=== PATIENT | male | born 1960 | race Caucasian/White ===

== ENCOUNTER 2016-07-30 11:42 | Emergency (ER) | payer BC ==
[~2016-07-30] VITALS: Ht 172.7 cm; Wt 80.2 kg
[~2016-07-30 11:42] MED LIST: IBUP-1724 PO
[2016-07-30 11:47] VITALS: Ht 172.7 cm; Wt 80.2 kg
--- OUTSIDE RECORDS SUMMARY | 2016-07-30 11:48 | XMS REPORT | Continuity of Care Document ---
Author Author [facility] Organization [facility] Address Unknown Phone Unavailable Allergies Active Description Code Type Severity Reaction Onset Reported/Identified Relationship to Patient Clinical Status Yes penicillin NKMA N/A Urticaria (hives) Hives Yes penicillin NKMA N/A Hives Urticaria (hives) Yes Penicillins Drug Allergy Urticaria (hives) 06/27/2012 Yes No Known Food Allergies Food Allergy 07/23/2012 Yes penicillin NKMA N/A Hives Urticaria (hives) 08/21/2013 Medications Medication Packaging Start Date Stop Date Route Dosage Sig albuterol(albuterol) 01/22/2014 10/07/2014 See Instructions , Albuterol HFA; 1 to 2 puffs p.o. every 4 hours p.r.n. amitriptyline(amitriptyline 50 mg oral tablet) 1 tabs 01/22/2014 01/23/2014 Oral 50 mg 1 tabs, Oral, Bedtime (once a day) acamprosate(Campral 333 mg oral delayed release tablet) 2 tabs 01/23/2014 02/09/2014 Oral 666 mg 2 tabs, Oral, TID, 84 tabs zolpidem(Ambien 10 mg oral tablet) 01/23/2014 01/28/2014 Oral 1/2-1 tab, Oral, Bedtime (once a day), Carol Foley, 5 tabs, PRN: as needed for sleep fluconazole(Diflucan 200 mg oral tablet) 1 tabs 06/19/201412/2014 Oral 200 mg 1 tabs, Oral, Daily, 10 tabs predniSONE(predniSONE 20 mg oral tablet) 1 tabs 06/19/201412/2014 Oral 20 mg 1 tabs, Oral, Daily, 10 tabs loratadine(Claritin 10 mg oral tablet) 1 tabs 06/19/20142014 Oral 10 mg 1 tabs, Oral, Daily, 90 tabs ciprofloxacin(Cipro 500 mg oral tablet) 1 tabs 10/16/201410/26 Oral 500 mg 500 mg=1 tabs, Oral, q12hr, for 10 days, 20 tabs, 0 Refill(s) doxycycline(doxycycline hyclate 100 mg oral capsule) 1 caps 10/16/2014 10/26/2014 Oral 100 mg 100 mg=1 caps, Oral, BID, for 10 days, 20 caps, 0 Refill(s) acyclovir(acyclovir 400 mg oral tablet) 1 tabs 10/16/201410/23 Oral 400 mg 400 mg=1 tabs, Oral, 5x/Day, for 7 days, 35 tabs, 0 Refill(s) doxycycline(doxycycline hyclate 100 mg oral capsule) 1 caps 10/29/2014 11/08/2014 Oral 100 mg 100 mg=1 caps, Oral, BID, for 10 days, 20 caps, 0 Refill(s) triamcinolone topical(triamcinolone 0.1% topical cream) 1 shalom 10/29/2014 07/05/2015 Topical 1 shalom, Topical, BID, 60 g, 0 Refill(s) hepatitis A-hepatitis B vaccine(Twinrix Preservative-Free 720 units-20 mcg/mL intramuscular suspension) 1 mL 01/25/2015 01/29/2015 IntraMuscular 1 mL, IntraMuscular, Once pneumococcal 23-polyvalent vaccine(Pneumovax 23 injectable solution) 0.5 mL 201401/29/2015 IntraMuscular 0.5 mL, IntraMuscular, Once hepatitis A-hepatitis B vaccine(Twinrix Preservative-Free 720 units-20 mcg/mL intramuscular suspension) 1 mL 01/29/2015 01/29/2015 IntraMuscular 1 mL, IntraMuscular, Once Problems Date Dx Coded Attending Type Code Diagnosis Diagnosed By 04/30/2012 Josh Chatterjee 786.2 COUGH 06/27/2012 Jarrod PERSON, Robert Alarcon 070.70 VH C NOS W/O COMA 06/27/2012 Jarrod PERSON, Robert Alarcon 202.80 XNODAL/NOS LYMPHOMA NEC 06/27/2012 Robert Garay MD 780.60 FEVER NOS 06/27/2012 Jarrod PERSON, Robert Alarcon 787.01 NAUSEA W VOMITING 06/27/2012 Robert Garay MD Admitting 789.39 ABD/PELV SWELL-SITE NEC 07/23/2012 Isaak Mittal DO Final 202.80 XNODAL/NOS LYMPHOMA NEC 08/17/2015 Isaak Mittal DO Final B19.20 Unspecified viral hepatitis C without hepatic coma 08/17/2015 Isaak Mittal DO Reason C83.30 Diffuse large B-cell lymphoma, unspecified site 08/17/2015 Isaak Mittal DO Final F10.20 Alcohol dependence, uncomplicated 08/17/2015 Isaak Mittal DO Final G47.00 Insomnia, unspecified 08/17/2015 Isaak Mittal DO Final K70.30 Alcoholic cirrhosis of liver without ascites 08/17/2015 Isaak Mittal DO Final L30.9 Dermatitis, unspecified Procedures Code Description [place] [address] BONE MARROW BIOPSY Isaak Mittal DO 07/23/2012 09412 Bone marrow; biopsy, needle or trocar 08/11/2015 Results Test Result Range CBC W/DIFF - 04/30/12 17:40 BASOPHIL # 0.1 k/cumm 0.0-0.2 BASOPHIL % 2 % 0-1 EOSINOPHIL # 0.4 k/cumm 0.1-0.5 EOSINOPHIL % 7 % 2-4 GRANULOCYTE # 2.5 k/cumm 2.0-9.0 LYMPHOCYTE # 2.2 k/cumm 1.0-4.0 LYMPHOCYTE % 39 % 20-30 MEAN CELL HGB 33.1 pg 27.0-33.0 MEAN CELL HGB CONCENTRATION 33.6 g/dl 32.0-36.0 MEAN CELL VOLUME 98.6 fl 80.0-100.0 MONOCYTE # 0.4 k/cumm 0.1-1.0 MONOCYTE % 8 % 4-6 RED BLOOD CELL 5.04 m/cumm 4.00-6.00 RED CELL DISTRIBUTION WIDTH 11.9 % 11.0- 15.6 WHITE BLOOD CELL 5.6 k/cumm 5.0-10.0 HEMOGLOBIN 16.7 gm/dL 14.0-18.0 HEMATOCRIT 49.7 % 40.0-54.0 PLATELET COUNT 178 k/cumm 150-450 MANUAL DIFF(R) - 04/30/12 17:40 DIFFERENTIAL MANUAL RBC MORPH NOTED SEGMENTED NEUTROPHIL % 44 % 50-70 METABOLIC PANEL, BASIC - 04/30/12 17:40 POTASSIUM 3.8 mmol/L 3.5-5.3 EST GFR (MDRD) > 60 mL/min > 59 ANION GAP 12 mmol/L 5-15 EST CrCl (CG) > 60 mL/min > 59 GLUCOSE 98 mg/dL 70-99 CALCIUM 9.2 mg/dL 8.5-10.1 BLOOD UREA NITROGEN 12 mg/dL 7-20 CREATININE 0.9 mg/dL 0.8-1.3 SODIUM 138 mmol/L 135-148 CHLORIDE 101 mmol/L 98-110 CARBON DIOXIDE 25 mmol/L 21-32 TROPONIN I BEDSIDE - 04/30/12 17:49 METHOD Bedside TROPONIN I < 0.04 ng/mL < 0.11 Influenza A and B - 07/28/16 10:45 Influenza A Negative NA Negative Influenza B Negative NA Negative Encounters ACCT No. Visit Date/Time Discharge Status Pt. Type Provider Facility Loc./Unit Complaint [id number] 04/30/2012 17:22:00 2012 19:15:00 DIS Emergency Josh Chatterjee [facility]
--- NOTE | 2016-07-30 12:02 | ERPDOC ---
Departure Disposition Decision Date: Jul 30, 2016 Disposition Decision Time: 14:30 Disposition: [address] [facility] Impression Impression Impression: Primary Impression: Vasculitis of skin Severity: Moderate Condition: Stable Seen By: Physician only Referrals: DMITRI ALARCON MD (Family) Problems/Meds/Labs Reviewed?: Yes Medications reviewed and manag: Yes Follow up care ordered?: Yes Mental Status: Alert, Oriented HPI - Lower Extremity General Chief Complaint: Skin Injury Stated Complaint: RASH ON LEFT LOWER LEG Time Seen by Provider: 12:01 Source: patient, family Exam Limitations: no limitations HPI - Lower Extremity Initial Comments Patient is a 56-year-old male presents to the emergency room for evaluation of left lower leg rash. Patient does have a history of hepatitis C, psoriasis, alcoholic cirrhosis, remission of non-Hodgkin's lymphoma. Patient has been feeling poorly for the last 4-5 days, generalized body aches low-grade fever of 101 on Sunday/. Patient was evaluated on Sunday and is primary medical physician's office influenza swab was negative patient still symptomatic treatment returned home. Yesterday patient began to complain of some swelling in his left lower extremity and pain, this morning he noticed a pruritic rash from the knee down, significant pain. Patient didn't seek medical care at an urgent care, however they felt it would be more appropriate for the patient to be evaluated in the emergency room. On arrival patient complaining of 10/10 pain, vital signs currently stable. Allergies: Coded Allergies: Penicillins (Verified Allergy, Mild, HIVES, 07/30/16) Past History Past Medical History Metabolic: cancer (non-Hodgkin's lymphoma), DENIES: diabetes, hypercholesterolemia, hypertension Integumentary: other (psoriasis) Infectious: hepatitis C Psychological: alcohol abuse Family History Family PMH: FOUND: CHF Vaccines Hx Influenza Vaccination: No Hx Pneumococcal Vaccination: No Hx Tetanus, Diptheria, Pertuss: Yes (PT REPORTS WITHIN LAST 5 YEARS.) Social History # of Packs/Tins per Day: 0.5 Second Hand Exposure: No Quit Date: Jul 22, 2008 Substance Use Type: does not use Alcohol Intake: a few times a week Review of Systems Constitutional Constitutional: fever, DENIES: appetite decrease, chills, dizziness, weakness ENMT Sinuses: DENIES: congestion, rhinorrhea Mouth/Throat: DENIES: scratchy throat, sore throat Cardiovascular Cardiac: DENIES: chest pain, dyspnea on exertion Pulmonary Respiratory: DENIES: cough, dyspnea, sputum, tachypnea GI Upper Abdomen: DENIES: nausea, pain, vomiting Lower Abdomen: DENIES: constipation, diarrhea, pain General: DENIES: frequency, urgency Musculoskeletal General: see HPI Integumentary Skin: see HPI Endocrine Endocrine: DENIES: heat/cold intolerance Hematologic/Lymphatic Hematologic/Lymphatic: DENIES: anemia Physical Exam General General Nourishment: well nourished, well developed General Body Habitus: well groomed Vitals and Pain First Documented Vital Signs Date Time Temp Pulse Resp B/P Pulse Ox O2 Delivery O2 Flow Rate FiO2 07/30/16 11:47 98.1 93 16 114/73 95 Room Air Weight: Kilograms: 80.200 Height (feet): 5 Height (inches): 8.00 Triage Pain Scale: RN VS reviewed by Provider: Yes Eyes (brief) Eyes Brief: found: EOMI ENMT (brief) ENMT Brief: FOUND: mucosa moist, normal dentition, NOT FOUND: nasal erythema, pharnyx erythema, tonsillar deviation Neck (brief) Neck: NOT FOUND: adenopathy, nuchal rigidity, spasm, tenderness Respiratory (brief) Respiratory: FOUND: clear all fernandez, equal bilaterally, NOT FOUND: rales, wheezes Cardiovascular (brief) Cardiac: FOUND: regular rate, regular rhythm Capillary Refill: <2 sec Abdomen (brief) Abdominal Brief: FOUND: bowel normo active x4, soft, NOT FOUND: distended, tender Lymphatic (brief) Lymphatic Brief: NOT FOUND: adenopathy Musculoskeletal Extremity : Side: Left Extremity: thigh, leg Comments Patient below the knee left lower extremity he does have a sore arrival patch on the anterior leg just distal to the knee, there is some surrounding erythema. Patient has some significant petechiae and purpura below the knee with swelling, 2+ DP/PT pulses,/extension of ankle and toes are intact capillary refill less than 2 seconds sensation intact distally. Patient does have a 2+ femoral pulse Integumentary (brief) Integumentary Brief: FOUND: dry, pink, rash (see above), warm Neurologic (brief) Neurological Brief: FOUND: CN w/o gross def to obs, motor-no gross deficits, sensory-no gross deficits Psychiatric (brief) Psychiatric Brief: FOUND: alert, oriented Differential Diagnoses Considering: Fracture, Viral Synovitis, Other (vasculitis, cellulitis, DVT,) Progress Results/Orders Orders Procedure Category Date Status Time Iv Lock (Ed Only) EDM 07/30/16 Transmitted 12:08 Cbc W/Auto LAB 07/30/16 Complete Diff-Reflex Manual 12:08 Cmp - Comprehensive LAB 07/30/16 Complete Metabolic 12:08 C-Reactive Protein - LAB 07/30/16 Complete CRP 12:08 Lactate - Lactic Acid LAB 07/30/16 Complete 12:08 Procalcitonin LAB 07/30/16 Complete 12:08 Blood Culture ESPERANZA 07/30/16 In Process 12:08 Us Venous Duplex, US 07/30/16 Taken Lower Ext Lt 12:08 Normal Saline (Normal PHA 07/30/16 In Process Saline Iv) 12:15 Cefepime (Maxipime) PHA 07/30/16 Complete 12:15 Hydromorphone PHA 07/30/16 Complete (Dilaudid) 14:15 Vancomycin (Vancocin) PHA 07/30/16 In Process 14:30 Lab Results Laboratory Tests Test 07/30/16 12:23 White Blood Count 6.7T/MM3 Red Blood Count 3.73M/MM3 Hemoglobin 13.2GM/DL Hematocrit 37.7% Mean Corpuscular Volume 101.1UM3 Mean Corpuscular Hemoglobin 35.4UUG Mean Corpuscular Hemoglobin Concent 35.0GM/DL RDW Standard Deviation 50.0FL Platelet Count 49T/MM3 Mean Platelet Volume 10.0UM3 Immature Granulocyte % (Auto) 0.9% Neutrophils (%) (Auto) 61.3% Lymphocytes (%) (Auto) 21.3% Monocytes (%) (Auto) 15.8% Eosinophils (%) (Auto) 0.1% Basophils (%) (Auto) 0.6% Absolute Immature Granulocyte (auto 0.06T/MM3 Absolute Neutrophils (auto) 4.1T/MM3 Absolute Lymphocytes (auto) 1.4T/MM3 Absolute Monocytes (auto) 1.1T/MM3 Absolute Eosinophils (auto) 0.0T/MM3 Absolute Basophils (auto) 0.0T/MM3 Turbidity < 20 Sodium Level 136MEQ/L Potassium Level 3.7MEQ/L Chloride Level 100MEQ/L Carbon Dioxide Level 19MEQ/L Anion Gap 17MEQ/L Blood Urea Nitrogen 13.0MG/DL Creatinine 0.7MG/DL Glomerular Filtration Rate Calc 117 BUN/Creatinine Ratio 19RATIO Glucose Level 105MG/DL Calculated Osmolality 262MOSM/KG Calcium Level 8.7MG/DL Total Bilirubin 2.30MG/DL Icterus Index < 2 Aspartate Amino Transf (AST/SGOT) 153U/L Alanine Aminotransferase (ALT/SGPT) 67U/L Alkaline Phosphatase 104U/L C-Reactive Protein 58.4MG/L Total Protein 8.4G/DL Albumin 3.5G/DL Globulin 4.9G/DL Albumin/Globulin Ratio 0.7RATIO Plasma Lactate 2.2MMOL/L Procalcitonin 0.36NG/ML Chemistry Specimen Hemolysis < 15 Medications Current ED Medications Sodium Chloride 1,000 ml @ 150 mls/hr Q6H40M ONCE IV Last administered on 12:34; Start 07/30/16 at 12:15; Stop 07/30/16 at 18:54 Cefepime HCl/ Sodium Chloride (Maxipime/NS) 100 ml @ 200 mls/hr O ONCE IV Last administered on 07/30/16 12:35; Start 07/30/16 at 12:15; Stop 07/30/16 at 12: 44; Status DC Hydromorphone HCl 0.5 mg 0.5 mg O ONCE IV Last administered on 07/30/16 14:06 ; Start 07/30/16 at 14:15; Stop 07/30/16 at 14:16; Status DC Vancomycin HCl/ Sodium Chloride (Vancocin/NS) 500 ml @ 250 mls/hr O ONCE IV Last administered on 07/30/16 14:37; Start 07/30/16 at 14:30; Stop 07/30/16 at 16: 29 Progress Progress Have discussed case with Dr. Oliva, hospitalist admitting for Dr. Alarcon. She is come and evaluated the patient in the emergency department. Given patient's laboratories, past medical history, physical exam, vasculitis would be more consistent diagnosis, she would recommend transfer to higher level care [place] [facility]. Discuss case with Dr. Yuen hospitalist at [facility], in order to cover for sepsis he would like us to give 2 g of vancomycin he will accept patient to the ICU. Ultrasound US : Ultrasound: Venous Doppler Interpretation: Normal, Faxed Report GURMEET FIGUEROA MD Jul 30, 2016 12:02
--- NOTE | 2016-07-30 12:03 | NUR ---
DR DR FIGUEROA AT BEDSIDE.
[2016-07-30] MEDS ORDERED: NO ROUTINE MEDS (12:10)
--- NOTE | 2016-07-30 12:10 | NUR ---
Casper weiss in [facility] - 07/30/16 at 1332 by [email or web address] RADIOLOGY PT TO RADIOLOGY VIA
[2016-07-30] MEDS ORDERED: CEFEPIME 1 G in NORMAL SALINE 100 ML IV ONE (12:15)
[2016-07-30] MEDS ORDERED: NORMAL SALINE 1,000 ML IV ONE (12:15)
--- NOTE | 2016-07-30 12:17 | NUR ---
Casper weiss in [facility] - 07/30/16 at 1332 by [email or web address] RADIOLOGY PT RETURNED.
--- OUTSIDE RECORDS SUMMARY | 2016-07-30 12:27 | XMS REPORT | Continuity of Care Document ---
Author Author [facility] Organization [facility] Address Unknown Phone Unavailable Allergies Active Description [...] Procedures Code Description [place] [address] BONE MARROW BIOPSY Isaak Mittal DO 07/23/2012 24480 Bone marrow; biopsy, needle or trocar 08/11/2015 [...] Status Pt. Type Provider Facility Loc./Unit Complaint [id number] 04/30/2012 17:22:00 2012 19:15:00 DIS Emergency Josh Chatterjee [facility]
[2016-07-30 12:37] LABS: BASOPHILS % (AUTO) 0.6 % (0-2); EOSINOPHILS % (AUTO) 0.1 % (0-4); HCT - HEMATOCRIT 37.7 % (41-53); HGB - HEMOGLOBIN 13.2 GM/DL (13.5-17.5); IMMATURE GRANULOCYTE # (AUTO) 0.06 T/MM3 (0.00-0.03); IMMATURE GRANULOCYTE % (AUTO) 0.9 % (0.0-0.5); LYMPHOCYTES # (AUTO) 1.4 T/MM3 (1-4.8); LYMPHOCYTES % (AUTO) 21.3 % (23-45); MEAN CORPUSCULAR HGB 35.4 UUG (26-34); MEAN CORPUSCULAR VOLUME 101.1 UM3 (80-100); MONOCYTES # (AUTO) 1.1 T/MM3 (0-0.8); MONOCYTES % (AUTO) 15.8 % (0-9.0); NEUTROPHILS #(AUTO)-ABSOLUTE 4.1 T/MM3 (1.8-7.7); NEUTROPHILS % (AUTO) 61.3 % (33-66); RED BLOOD COUNT 3.73 M/MM3 (4.50-5.90); WBC - WHITE BLOOD COUNT 6.7 T/MM3 (4.5-11.0)
[2016-07-30 12:47] LABS: LACTATE - LACTIC ACID 2.2 MMOL/L (0.6-2.2)
[2016-07-30 12:48] LABS: ALBUMIN 3.5 G/DL (3.5-5.0); ALBUMIN/GLOBULIN RATIO 0.7 RATIO (1.1-2.2); ALKALINE PHOSPHATASE 104 U/L (38-126); ALT (SGPT) 67 U/L (21-72); ANION GAP 17 MEQ/L (5-15); AST (SGOT) 153 U/L (17-59); BUN/CREATININE RATIO 19 RATIO (6-26); C-REACTIVE PROTEIN 58.4 MG/L (0-9); CALCIUM 8.7 MG/DL (8.4-10.2); CHLORIDE 100 MEQ/L (98-107); CO2 - CARBON DIOXIDE 19 MEQ/L (22-30); CREATININE 0.7 MG/DL (0.8-1.5); GLOMERULAR FILTRATION RATE 117; GLUCOSE 105 MG/DL (75-110); POTASSIUM 3.7 MEQ/L (3.6-5); SODIUM 136 MEQ/L (134-144); TOTAL PROTEIN 8.4 G/DL (6.3-8.2)
--- NOTE | 2016-07-30 13:05 | NUR ---
Casper weiss in [facility] - 07/30/16 at 1332 by [email or web address] RT IN ROOM FOR TX.
--- NOTE | 2016-07-30 13:25 | NUR ---
MARY JANEO MARIA M, SONO TECH AT BEDSIDE WITH PORTABLE.
--- NOTE | 2016-07-30 14:06 | NUR ---
MED PT GIVEN INSTRUCTION REGARDING DILUADID. UNDERSTANDING VERBALIZED.
--- NOTE | 2016-07-30 14:06 | NUR ---
DR DR FIGUEROA AND DR SIMPSON AT BEDSIDE.
[2016-07-30] MEDS ORDERED: HYDROMORPHONE 2mg/ml INJECTION IV ONE (14:15)
[2016-07-30] MEDS ORDERED: VANCOMYCIN 2,000 MG in NORMAL SALINE 500 ML IV ONE (14:30)
--- NOTE | 2016-07-30 14:47 | NUR ---
CONSENT FOR TRANSFER SIGNED AT THIS TIME.
--- NOTE | 2016-07-30 15:17 | NUR ---
[facility]ATCH NOTIFIED OF NEED FOR EMS FOR TRANSFER.
--- NOTE | 2016-07-30 15:17 | NUR ---
REPORT CALLED TO DELIA GRIDER [facility].
--- NOTE | 2016-07-30 15:27 | NUR ---
EMS HERE, REPORT GIVEN TO SIDRA WASH[employer] MACHINE LOADER.
[2016-07-30 15:32] VITALS: BP 112/71; PULSE 90; RESP 16; TEMP 98.7; O2SAT 96
--- NOTE | 2016-07-30 15:32 | NUR ---
TRANSFER PT DEPARTED AT THIS TIME WITH EMS.
--- NOTE | 2016-07-30 22:23 | DI ---
Indication: ITS.REASON: erythematous enlarged left lower extremity PROCEDURE: US VENOUS DUPLEX, LOWER EXT LT: Encounter: Initial Comparison: None Technique: Color Doppler duplex and grayscale sonographic imaging of the left lower extremity was performed. Findings: There is no evidence for acute deep venous thrombosis in the left thigh. Specifically, serial graded compression was performed from the inguinal ligament to the popliteal bifurcation, on the left thigh, demonstrating appropriate compressibility of the deep venous system. In addition, color and pulsed Doppler demonstrate appropriate spontaneous flow, variation with respiration, and augmentation with calf compression. At the ankle, normal flow is identified in the posterior tibial veins; these vessels are also normal in caliber. Impression: No evidence of acute DVT in the left lower limb. There is a preliminary report by [facility]. .
== END 2016-07-30 15:32 | disposition short-term general hospital (02) ==
LOC: ED 11:42
DX: L95.9 Vasculitis limited to the skin, unspecified (principal)
CPT/HCPCS: 36415; 80053; 83605; 84145; 85025; 86140; 87040; 93971; 96361; 96365; 96367; 96375; 99285; J0692; J1170; J3370; J7030; J7050